=== PATIENT | male | born 1955 | race Asian ===

== ENCOUNTER 2023-06-16 17:47 | Emergency (ER) | payer OTHER, MEDICARE ==
[2023-06-16 18:30] VITALS: BP 147/78; O2SAT 99
[2023-06-16] MEDS ORDERED: IBUPROFEN 400 MG TABLET PO STA (20:22)
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
== END 2023-06-16 20:38 | disposition home or self-care (01) ==
LOC: ED 17:47
DX: Z04.1 Encounter for examination and observation following transport accident (principal); R29.898 Other symptoms and signs involving the musculoskeletal system
CPT/HCPCS: 99282; 99283; A9270